=== PATIENT | male | born 1960 | race Hispanic/Latino ===

== ENCOUNTER 2020-05-16 10:18 | Day surgery (SDC) | payer BC ==
[~2020-05-16 10:18] MED LIST: LACTATED RINGERS 1,000 ML IV SCH
[2020-05-16] MEDS ORDERED: BACTERIOSTATIC SODIUM CHLORIDE 0.9% 30 ML VIAL INFILTRATI ONE (10:25)
[2020-05-16] MEDS ORDERED: ONDANSETRON 4 MG/2 ML INJ IV PRN (10:51)
[2020-05-16] MEDS ORDERED: HYDROmorphone 1 MG/1 ML INJ IV PRN ×2 (10:51)
--- NOTE | 2020-05-16 10:52 | Anesthesia Day of Surgery ---
Anesthesia Day of Surgery - Day of Surgery Patient Examined: Yes Patient H&P Reviewed: Yes Patient is NPO: Yes
--- NOTE | 2020-05-16 10:54 | Anesthesia Consultation ---
Anesthesia Consult and Med Hx Date of service: 05/16/20 - Airway Anesthetic Teeth Evaluation: Good (One missing) ROM Head & Neck: Adequate Mental/Hyoid Distance: Adequate Mallampati Class: Class III Intubation Access Assessment: Probably Good - Pre-Operative Health Status ASA Pre-Surgery Classification: ASA2 Proposed Anesthetic Plan: General - Pulmonary Hx Smoking: No Hx Asthma: No Hx Respiratory Symptoms: No (+2FS) Hx Pneumonia: No Hx Sleep Apnea: No - Cardiovascular System Hx Hypertension: No Hx Heart Attack/AMI: No Hx Heart Murmur: No - Central Nervous System Hx Seizures: No Hx Back Pain: No Hx Psychiatric Problems: No - Gastrointestinal Hx Gastroesophageal Reflux Disease: Yes (Rare. Has Crohn's ) - Endocrine Hx End Stage Renal Disease: No Hx Cirrhosis: No Hx Liver Disease: Yes (Fatty liver) - Hematic Hx Anemia: Yes Hx Sickle Cell Disease: No - Other Systems Hx Alcohol Use: Yes (RARE-WHISKEY) Hx Substance Use: No Hx Cancer: No Hx Obesity: No
[2020-05-16] MEDS ORDERED: GENTAMICIN 160 MG in SODIUM CHLORIDE 0.9% 100 ML IV SCH (12:45)
[2020-05-16] MEDS ORDERED: HYDROmorphone 1 MG/1 ML INJ ONE (13:18)
[2020-05-16] MEDS ORDERED: propofoL 200 MG/20 ML VIAL IV ONE (13:18)
[2020-05-16] MEDS ORDERED: WATER FOR IRRIG STERILE 2000 ML IR ONE (15:00)
[2020-05-16] MEDS ORDERED: LIDOCAINE MPF (2%) 20 MG/1 ML VIAL 5 ML ONE (15:17)
[2020-05-16] MEDS ORDERED: FUROSEMIDE 40 MG/4 ML INJ ONE (15:17)
[2020-05-16] MEDS ORDERED: LACTATED RINGERS 1,000 ML ONE (15:35)
--- NOTE | 2020-05-16 15:36 | Post Operative Note ---
Date of procedure: 05/16/20 Pre-op diagnosis: large # bladder stones bph Post-op diagnosis: same Findings: as above Procedure: cysto laser lithoclast rezum Anesthesia: GETA Surgeon: MARCELO DIAZ Estimated blood loss: minimal Pathology: list (stones) Specimen disposition: given to patient/family Condition: stable Disposition: PACU
--- NOTE | 2020-05-16 15:38 | Discharge Summary ---
Short Stay Discharge Plan Activity: other (no straining ) Weight Bearing Status: Full Weight Bearing Diet: low fat, low cholesterol, low salt Special Instructions: other (inc fluids ) Durable Medical Equipment Needed Upon Discharge: other (home with cathewter ) Follow up with: PRIMARY CARE, [Primary Care Provider] - 7 Days MARCELO DIAZ MD [Staff Physician] - 7 Days
--- NOTE | 2020-05-16 16:01 | Fluoroscopy Report ---
Cystogram fluoroscopy INDICATION: Nephrolithiasis. IMPRESSION: Retrograde instillation of contrast within the urinary bladder performed without obvious complication Fluoroscopy time: 26 seconds. Fluoroscopic images: 4. Signer Name: Joo Rosado MD Signed: 05/16/2020 3:56 PM Workstation Name: [id number]
--- NOTE | 2020-05-16 17:00 | Post Anesthesia Evaluation ---
- Post Anesthesia Evaluation Patient Participated: Yes Airway Patent: Yes Stable Respiratory Function: Yes Nausea/Vomiting: No Temp > 96.8F: Yes Pain Manageable: Yes Adequeate Hydration: Yes Anesthesia Complications: No Block Receding Appropriately: Not Applicable Patient on Ventilator: No
--- NOTE | 2020-05-16 17:05 | Operative Report ---
PREOPERATIVE DIAGNOSES: Bladder outlet obstruction, large number of bladder stones. POSTOPERATIVE DIAGNOSES: Bladder outlet obstruction, large number of bladder stones. PROCEDURE: Cystoscopy, attempted laser of the stone and LithoClast of the stone with laser in a sandwich technique, evacuation of stones and Rezum to the middle lobe. SURGEON: Dr. Ledbetter. ANESTHESIA: General. FINDINGS: This is a gentleman with large number of stones, intermittent flow and hematuria. He now presents for cystoscopy. DESCRIPTION OF PROCEDURE: The patient was brought to the operating room and placed on the operating table. Following induction of anesthesia, placed in lithotomy position, prepped and draped in usual sterile fashion. A cystoscopy was carried out, showed a large number of stones in the bladder. We started lasering it, but the stones were way too big, so we made dimples in all the stones, which were at least 6 or 8 and then we took the LithoClast and broke them, which took quite some time to break them into pieces. We then took a resectoscope sheath and evacuated all the stones. Once we did that, we used 1 treatment of the Rezum in the middle lobe to hopefully help him from this recurrence. We did not want to do any resection as I explained to him before. The patient tolerated the procedure well. A Councill was placed. There was moderate edema in the bladder. Minimal hematuria. He was given Lasix, brought to recovery in stable condition with a 22 catheter. JOB# [id number] HENRY/ANNIA
[2020-05-16 17:29] VITALS: BP 130/74
== END 2020-05-16 17:30 | disposition home or self-care (01) ==
LOC: OR 10:18
PROVIDERS: ATTEND Urology
DX: N21.0 Calculus in bladder (principal); N32.89 Other specified disorders of bladder; K21.9 Gastro-esophageal reflux disease without esophagitis; Z88.0 Allergy status to penicillin; Z88.8 Allergy status to other drugs, medicaments and biological substances; Z79.899 Other long term (current) drug therapy; Z90.49 Acquired absence of other specified parts of digestive tract; Z72.89 Other problems related to lifestyle; Z98.890 Other specified postprocedural states
CPT/HCPCS: 52318; 53854; 74430; A4217; C1769; J1170; J1580; J1940; J2704; J7120; Q9967